=== PATIENT | female | born 1950 | race Caucasian/White ===

== ENCOUNTER 2019-12-17 20:29 | Emergency (ER) | payer BC ==
[~2019-12-17] VITALS: Ht 162.6 cm; Wt 84.4 kg
--- NOTE | 2019-12-17 21:10 | NUR ---
at bedside for assessment
[2019-12-17] MEDS ORDERED: HYDROCODONE/APAP 5-325MG TABLET PO ONE (21:15)
[2019-12-17] MEDS ORDERED: HYDROCODONE/APAP 5-325MG TABLET ONE (21:39)
[2019-12-17 21:52] LABS: BASOPHILS % (AUTO) 0.6 % (0.0-2.0); EOSINOPHILS # (AUTO) 0.1 K/uL (0.0-0.7); EOSINOPHILS % (AUTO) 3.8 % (0.0-7.0); HEMATOCRIT 36.2 % (31.2-41.9); HEMOGLOBIN 12.3 g/dL (10.9-14.3); LYMPHOCYTES # (AUTO) 0.7 K/uL (20.0-40.0); LYMPHOCYTES % (AUTO) 19.5 % (20.5-51.5); MEAN CORPUSCULAR HEMOGLOBIN 33.5 uug (24.7-32.8); MEAN CORPUSCULAR HGB CONC 34 g/dL (32.3-35.6); MEAN CORPUSCULAR VOLUME 98.6 fL (75.5-95.3); MONOCYTES # (AUTO) 0.3 K/uL (2.0-10.0); MONOCYTES % (AUTO) 8.4 % (0.0-11.0); NEUTROPHILS # (AUTO) 2.5 K/uL (1.8-8.9); NEUTROPHILS % (AUTO) 67.7 % (38.5-71.5); PLATELET COUNT (AUTO) 170 K/uL (179-408); RED BLOOD CELL COUNT(AUTO) 3.67 MIL/uL (3.63-4.92); WHITE BLOOD COUNT (AUTO) 3.7 K/uL (3.8-11.8)
[2019-12-17 21:57] LABS: CREATININE 0.8 mg/dL (0.6-1.3); POTASSIUM 4.3 mmol/L (3.5-5.1)
[2019-12-17 22:03] LABS: BILIRUBIN,TOTAL 0.6 mg/dL (0.2-1.0); TOTAL PROTEIN, SERUM 6.9 g/dL (6.4-8.2)
[2019-12-17] MEDS ORDERED: CLINDAMYCIN HCL 150 MG CAPSULE PO ONE (23:00)
--- NOTE | 2019-12-17 23:00 | NUR ---
Splint applied to patient's right pinky finger and ring finger
[2019-12-17] MEDS ORDERED: CLINDAMYCIN HCL 300 MG CAPSULE ONE (23:04)
--- NOTE | 2019-12-17 23:14 | NUR ---
Patient discharged to home in stable condition. Patient ambulatory with caregiver. Rx given. Written and verbal after care instructions given. All labs and X-rays given. Patient verbalizes understanding of instructions. Stressed follow up or return to ER for worsening s/s.
[2019-12-17 23:18] VITALS: BP 136/88
== END 2019-12-17 23:20 | disposition home or self-care (01) ==
LOC: ER 20:32
DX: S02.652A Fracture of angle of left mandible, initial encounter for closed fracture (principal); S62.616A Displaced fracture of proximal phalanx of right little finger, initial encounter for closed fracture; M79.641 Pain in right hand; W18.30XA Fall on same level, unspecified, initial encounter; Y92.89 Other specified places as the place of occurrence of the external cause; M19.041 Primary osteoarthritis, right hand; D72.819 Decreased white blood cell count, unspecified; D69.6 Thrombocytopenia, unspecified; M25.511 Pain in right shoulder; Z90.49 Acquired absence of other specified parts of digestive tract; S60.041A Contusion of right ring finger without damage to nail, initial encounter; Z88.6 Allergy status to analgesic agent; Z88.5 Allergy status to narcotic agent; Z88.0 Allergy status to penicillin; Z88.2 Allergy status to sulfonamides; S02.69XD Fracture of mandible of other specified site, subsequent encounter for fracture with routine healing; X58.XXXD Exposure to other specified factors, subsequent encounter
CPT/HCPCS: 36415; 70450; 70486; 73130; 73140; 85025; A4663